=== PATIENT | female | born 1955 | race Caucasian/White ===

== ENCOUNTER 2016-07-28 06:07 | Day surgery (SDC) | payer BC ==
[2016-07-25 16:24] LABS: HEMATOCRIT 41.2 % (36.0-48.0); HEMOGLOBIN 14.7 g/dL (12.0-16.0)
[2016-07-25 16:36] LABS: CALCIUM, SERUM 8.9 MG/DL (8.5-10.4); CHLORIDE, SERUM 106 MMOL/L (96-112); CO2 (CARBON DIOXIDE) 28 MMOL/L (24-34); CREATININE 0.66 MG/DL (0.55-1.02); GFR AFRICAN AMERICAN 112 ML/MIN (>=60); GFR NON AFRICAN AMERICAN 97 ML/MIN (>=60); GLUCOSE, SERUM 96 MG/DL (60-99); POTASSIUM, SERUM 3.7 MMOL/L (3.5-5.3); SODIUM, SERUM 142 MMOL/L (135-148)
[2016-07-25 16:37] LABS: BUN (BLOOD UREA NITROGEN) 6 MG/DL (6-23)
--- NOTE | ~2016-07-28 | OP ---
Record Of Operation [facility] [address] [place]. [address] NAME: ELIU HART : 59 STATUS : [facility]#: [id number] AGE: 61 ADM/REG DATE : 07/28/16 MR#: [id number] REPORT SERV DATE: 08/21/16 DICTATED BY: PASCUAL MUÑOZ DATE: 08/21/16 REPORT STATUS : Draft TRANSCRIBED BY: MODL DATE: 08/21/16 DATE OF PROCEDURE: 07/28/2016 PREOPERATIVE DIAGNOSIS: History of breast cancer for the next stage in her breast reconstruction. POSTOPERATIVE DIAGNOSIS: History of breast cancer for the next stage in her breast reconstruction. PROCEDURE: 1. Exchange of left-sided tissue bore mill operator for permanent implant using Natrelle Style 15- 457 gel implant, serial number is [id number]. 2. Right-sided mastopexy for symmetry. SURGEON: Pascual Muñoz M.D. ANESTHESIA: General endotracheal. BRIEF HISTORY: This is a 61-year-old, white female, who presents for next stage in her breast reconstruction. She and I discussed the different issues and options, procedures, risks, and benefits. She seemed comfortable, had no unanswered questions, wished to proceed. SUMMARY OF PROCEDURE: The patient was marked in the preop holding area, then taken to operating suite where she was placed under satisfactory general endotracheal anesthesia prepped and draped in usual sterile fashion. Local anesthesia was infiltrated throughout prior beginning any operative intervention. The left side was to be addressed initially, and the previous incision was utilized as our exposure which was the junction of the latissimus skin flap with her breast skin. A distance of approximately 8 cm was chosen as the entry point and after local anesthesia taken effect, the previous scar was excised in a full-thickness fashion. The dissection extended down to the capsule of the existing tissue bore mill operator which was deflated and removed. Inspection of the capsule and pocket at this point showed there to be a fairly significant thickened scar, and this was modified according to our preoperative design using internal capsular releases with electrocautery. Cautery was also used for hemostasis. The latissimus muscle was also thinned laterally to help with any animation deformities under direct vision using electrocautery. Sizers were utilized to the left side to help determine the size and shape of the implant to be utilized for symmetry. With the sizers in place, attention was turned to that of the right-sided mastopexy which would be a vertical approach. The nipple areola was marked to be placed approximately 23 cm from the suprasternal notch in the seated position and after local anesthesia had taken effect, all of our incisions on the right side were made. The nipple-areolar complex was decreased in size to approximately 40 mm in diameter in a stretched position. The vertical amount of skin was then removed by deepithelialization. The tissues were then undermined circumferentially to allow for elevation of the nipple-areolar complex and tightening of the breast tissue on this side. Tailor tacking was used to choose the amount of skin to be removed and modify our results, and this was checked in the lying and seated position. Record Of Operation [facility] [id number] [place]. [address] NAME: ELIU HART : 59 STATUS : [facility]#: [id number] AGE: 61 ADM/REG DATE : 07/28/16 MR#: [id number] REPORT SERV DATE: 08/21/16 DICTATED BY: PASCUAL MUÑOZ DATE: 08/21/16 REPORT STATUS : Draft TRANSCRIBED BY: CARMENCITA DATE: 08/21/16 After hemostasis was controlled on the right side, a 15 round Nicolas drain was placed and secured and closure was performed using interrupted 3-0 Vicryl in subcutaneous tissues followed by running 4-0 Monocryl subcuticular for exact skin edge approximation. The left breast sizer was then removed. The pocket was inspected for any active bleeding which was felt to be minimal and our primary implant was chosen and placed. Similar closure was performed using Vicryl and Monocryl. Mefix tape was applied as our Steri-Strip, followed by bulky dressing and bra. The patient was awakened and taken to recovery room in satisfactory condition. Estimated blood loss less than 25 mL. There were no complications. Counts were correct. ML/MODL Pascual Muñoz M.D. / [id number] CC: Mckenna Foley M.D.
[~2016-07-28 06:07] MED LIST: AROMASIN25 PO; ATV.5 PO; CLARIT10 PO; COLLAGEN PLU PO; D 5000 PO; DIL2TAB PO; DULCOLAX STOOL100 MG PO; FLONASE NAS; FRUIT; IBU-200200 MG PO; IBU400 PO; K500 PO; LEVOTHROID112 MCG PO; LEVOTHROID125 MCG PO; LEVOTHYROXIN112 MCG PO; LEVOTHYROXIN125 MCG PO; LIBRAX PO; LOP25 PO; MAXIMUM D3 PO; MIRALAX POWDER1 PKT PO; MIRALAXPKT PO; MULTIPLE VIT PO; MULTIVIT/MIN PO; NAP250 PO; NEUR100 PO; NEUR300 PO; NEXIUM40 PO; OMEGA 3550 MG PO; PR25 PO; PROLIA60 MG/1 ML SC; SUPER B COMP OR; SUPER B W/C PO; SURBEX-T1 TAB PO; V5 PO; VITAMIN D31000 UNIT PO; VITE PO; X25 PO; ZOFRAN8 PO; [UNRECOGNIZED DRUG - OTHER]
== END 2016-07-28 15:39 | disposition home or self-care (01) ==
LOC: SDC 06:07
PROVIDERS: Plastic Surgery
PROC: 0HQT0ZZ Repair Right Breast, Open Approach (ICD-10-PCS; 2016-07-28)
PROC: 0HPU0NZ Removal of Tissue Expander from Left Breast, Open Approach (ICD-10-PCS; principal; 2016-07-28 07:15)
PROC: 0HRU0JZ Replacement of Left Breast with Synthetic Substitute, Open Approach (ICD-10-PCS; 2016-07-28 07:15)
DX: Z42.1 Encounter for breast reconstruction following mastectomy (principal); K21.9 Gastro-esophageal reflux disease without esophagitis
CPT/HCPCS: 80048; 85014; 85018; 93005; A9270-GY; C1769; C1789; J0690; J1170; J2250; J2405; J2710; J3010